=== PATIENT | male | born 1995 | race Asian ===

== ENCOUNTER 2018-10-23 11:16 | Emergency (ER) | payer OTHER ==
[2018-10-23 11:45] VITALS: BP 112/71
--- NOTE | 2018-10-23 12:05 | ED ---
Lower Extremity - HPI Summary HPI Summary: patient is a 23-year-old male who presents to the urgent care with a chief complaint of having left knee pain. He reports that he has been having pain on and off intermittently for the last year. He develops pain on it but he does increase his exercise. In the last week he has been playing basketball and judging every day and now he is noticed that the pain has increased. The patient is able to ambulate with no pain however when he plays he develops the pain. He reports no swelling, no erythema, no fevers or chills. He has no other complaints. - History of Current Complaint Chief Complaint: UCLowerExtremity Stated Complaint: LT KNEE PAIN Time Seen by Provider: 10/23/18 11:25 Hx Obtained From: Patient Mechanism Of Injury: Other - increase exercise Onset/Duration: Worse Since - for the last 1 year. Severity Initially: Mild Severity Currently: Moderate Pain Intensity: 5 - Allergies/Home Medications Allergies/Adverse Reactions: Allergies Allergy/AdvReac Type Severity Reaction Status Date / Time No Known Allergies Allergy Verified 10/23/18 11:45 PMH/Surg Hx/FS Hx/Imm Hx Previously Healthy: Yes - Surgical History Surgical History: None Surgery Procedure, Year, and Place: double jaw surgery 2013 Infectious Disease History: No Infectious Disease History: Denies: Traveled Outside the [place] in Last 30 Days - Family History Known Family History: Positive: Non-Contributory - Social History Alcohol Use: Weekly Substance Use Type: Reports: None Smoking Status (MU): Never Smoked Tobacco Review of Systems Constitutional: Negative Eyes: Negative ENT: Negative Cardiovascular: Negative Respiratory: Negative Gastrointestinal: Negative Genitourinary: Negative Positive: Other - left knee pain Skin: Negative Neurological: Negative Psychological: Normal All Other Systems Reviewed And Are Negative: Yes Physical Exam - Summary Physical Exam Summary: VITAL SIGNS: Reviewed. GENERAL: Patient is a well developed and nourished male who is lying comfortable in the stretcher. Patient is not in any acute respiratory distress. HEAD AND FACE: No signs of trauma. No ecchymosis, hematomas or skull depressions. No sinus tenderness. EYES: PERRLA, EOMI x 2, No injected conjunctiva, no nystagmus. EARS: Hearing grossly intact. Ear canals and tympanic membranes are within normal limits. MOUTH: Oropharynx within normal limits. NECK: Supple, trachea is midline, no adenopathy, no JVD, no carotid bruit, no c- spine tenderness, neck with full ROM. CHEST: Symmetric, no tenderness at palpation LUNGS: Clear to auscultation bilaterally. No wheezing or crackles. CVS: Regular rate and rhythm, S1 and S2 present, no murmurs or gallops appreciated. ABDOMEN: Soft, non-tender. No signs of distention. No rebound no guarding, and no masses palpated. Bowel sounds are normal. EXTREMITIES: left knee has no swelling, no erythema, no deformity. draw test is negative. he is able to ambulate without any difficulty. NEURO: Alert and oriented x 3. No acute neurological deficits. Speech is normal and follows commands. SKIN: Dry and warm Triage Information Reviewed: Yes Vital Signs On Initial Exam: Initial Vitals Temp Pulse Resp BP Pulse Ox 98.1 F 72 18 112/71 100 10/23/18 11:40 10/23/18 11:40 10/23/18 11:40 10/23/18 11:40 10/23/18 11:40 Vital Signs Reviewed: Yes Diagnostics - Vital Signs Vital Signs Temp Pulse Resp BP Pulse Ox 10/23/18 11:40 98.1 F 72 18 112/71 100 - Laboratory Lab Statement: Any lab studies that have been ordered have been reviewed, and results considered in the medical decision making process. Lower Extremity Course/Dx - Course Assessment/Plan: the patient is ambulating without any difficulty. He reports that the pain is mostly when he plays basketball he jogs. Therefore this time he would not benefit of an x-ray. He was recommended to take ibuprofen for pain and apply ice. He requests follow-up with orthopedics. Therefore, the patient will be given orthopedics for follow-up. Patient is hemodynamically stable alert and oriented 3. - Diagnoses Provider Diagnoses: Left knee pain Discharge - Sign-Out/Discharge Documenting (check all that apply): Patient Departure All imaging exams completed and their final reports reviewed: No Studies - Discharge Plan Condition: Stable Disposition: HOME Prescriptions: Ibuprofen TAB* [Motrin TAB* 800 MG] 800 mg PO Q8H PRN #30 tab PRN Reason: Pain Patient Education Materials: Knee Pain (ED), Arthralgia (ED) Referrals: No Primary Care Phys,NOPCP [Primary Care Provider] - [facility] [Outside] Marlon Olguin MD [Medical Doctor] - Additional Instructions: Take medications as instructed Increase your fluid intake F/U with orthopedics. Please make an appointment. Return to the [facility] if symptoms worsen - Billing Disposition and Condition Condition: STABLE Disposition: Home
== END 2018-10-23 12:20 | disposition home or self-care (01) ==
LOC: UCEAST 11:16
DX: M25.562 Pain in left knee (principal)
CPT/HCPCS: 99202; G0463